=== PATIENT | male | born 1965 | race Caucasian/White ===

== ENCOUNTER 2022-01-10 20:34 | Observation (INO) ==
[2022-01-10] MEDS ORDERED: Iopamidol - 370 500 ML MLS IVP ONE (20:53)
[2022-01-10] MEDS ORDERED: Ketorolac 30 MG/ML VIAL IVP ONE (20:54)
[2022-01-10 21:16] LABS: Basophils % 0.2 %; Eosinophils # 0.1 K/mcL (0.0-0.6); Eosinophils % 0.6 %; Hemoglobin 14.5 g/dL (12.9-16.9); Immature Granulocytes % 0.3 % (0-4); Lymphocytes # 2.2 K/mcL (0.6-4.6); Lymphocytes % 20.2 %; Mean Corpuscular Hemoglobin 28.9 pg (28.0-33.3); Mean Corpuscular Volume 87.6 fL (83.0-100.0); Mean Platelet Volume 9.7 fL (9.4-12.4); Monocytes # 0.7 K/mcL (0.0-1.3); Monocytes % 6.6 %; Neutrophils # 7.7 K/mcL (1.6-8.9); Platelet Count 341 K/mcL (140-400); Red Blood Count 5.02 M/mcL (4.19-5.50); Red Cell Distribution Width 13.8 % (11.5-14.5); Segmented Neutrophils % 72.1 %; White Blood Count 10.7 K/mcL (4.3-11.1)
[2022-01-10 21:37] LABS: Alanine Aminotransferase 36 Units/L (7-52); Albumin 4.1 g/dL (3.5-5.7); Albumin/Globulin Ratio 0.9 (1.1-2.2); Alkaline Phosphatase 64 Units/L (34-104); Aspartate Amino Transferase 27 Units/L (13-39); BUN/Creatinine Ratio 18 (6-26); Bilirubin,Total 0.4 mg/dL (0.3-1.0); Blood Urea Nitrogen 16 mg/dL (6-20); Carbon Dioxide 24 mEq/L (23-29); Chloride 103 mEq/L (98-107); Globulin 4.4 g/dL (2.4-3.5); Glucose 105 mg/dL (70-105); Lipase 30 Units/L (11-82); Osmolality,Calculated 286 (280-300); Potassium 3.7 mEq/L (3.5-5.1); Sodium 137 mEq/L (136-145); Total Protein 8.5 g/dL (6.4-8.9); eGFR For African Americans > 60 (> 60); eGFR For Non-African Americans > 60 (> 60)
[2022-01-10 23:18] LABS: Bacteria,Urine Few per hpf (None-Few); Bilirubin,Urine Negative (Negative); Blood,Urine Negative (Negative); Clarity,Urine Turbid (Clear); Color,Urine Yellow (Yellow); Glucose,Urine (UA) Normal (Normal); Ketones,Urine Trace mg/dL (Negative); Leukocyte Esterase,Urine Negative (Negative); Mucus,Urine Few per lpf (None-Few); Nitrite,Urine Negative (Negative); Protein,Urine 30 mg/dL (Neg-Trace); RBC,Urine 0-3 per hpf (0-3); Specific Gravity,Urine 1.028 (1.010-1.025); Squamous Epithelial Cell,Urine Few per hpf (None-Few)
[2022-01-10] MEDS ORDERED: Morphine Sulfate 2 MG/ML SYRINGE IVP ONE (23:51)
[2022-01-11] MEDS ORDERED: Ondansetron 4 MG/2 ML VIAL IVP ONE (00:03)
[2022-01-11 00:17] LABS: Amphetamine Screen,Urine Positive ng/mL (Cutoff=1000); Barbiturate Screen,Urine Negative ng/mL (Cutoff=200); Benzodiazepines Screen,Urine Negative ng/mL (Cutoff=200); Cannabinoid Screen,Urine Negative ng/mL (Cutoff = 50); Cocaine Screen,Urine Positive ng/mL (Cutoff= 300); Opiate Screen,Urine Negative ng/mL (Cutoff=300); Phencyclidine Screen,Urine Negative ng/mL (Cutoff=25)
[2022-01-11] MEDS ORDERED: 0.9 % Sodium Chloride 1,000 ML IVC SCH (01:00)
[2022-01-11] MEDS ORDERED: Naloxone 0.4 MG/ML INJ IVP PRN (01:02)
[2022-01-11] MEDS ORDERED: Ondansetron 4 MG/2 ML VIAL IVP PRN (01:02)
[2022-01-11] MEDS ORDERED: cefTRIAXone 1,000 MG in 0.9 % Sodium Chloride 10 ML IVP ONE (01:09)
[2022-01-11 01:19] LABS: Influenza A PCR Negative (Negative); Influenza B PCR Negative (Negative); Resp. Syncytial Virus PCR Negative (Negative); SARS-CoV-2 by PCR (In House) Negative (Negative)
[2022-01-11] MEDS: Acetaminophen IV 1,000 MG/100 ML BAG IVPB SCH ×2 (02:41→07:55)
[2022-01-11 03:29] LABS: Hematocrit 46.2 % (37.5-50.1); Mean Corpuscular HGB Conc 32.5 g/dL (31.6-35.5); Mean Corpuscular Volume 89.4 fL (83.0-100.0); Mean Platelet Volume 10.2 fL (9.4-12.4); Platelet Count 328 K/mcL (140-400); Red Blood Count 5.17 M/mcL (4.19-5.50)
[2022-01-11 03:30] LABS: INR 1.1; Prothrombin Time 12.5 Seconds (9.4-12.1)
[2022-01-11 03:33] LABS: Activated Partial Thrombo Time 33.6 Seconds (26.0-36.0)
[2022-01-11 03:41] LABS: Estimated Average Glucose 126 mg/dl
[2022-01-11 03:57] LABS: BUN/Creatinine Ratio 17 (6-26); Blood Urea Nitrogen 15 mg/dL (6-20); Carbon Dioxide 23 mEq/L (23-29); Chloride 102 mEq/L (98-107); Cholesterol 163 mg/dL (< 200); Glucose 91 mg/dL (70-105); HDL Cholesterol 55 mg/dL (40-59); LDL Cholesterol,Calculated 93 mg/dL (< 100); Osmolality,Calculated 280 (280-300); Potassium 3.8 mEq/L (3.5-5.1); Sodium 135 mEq/L (136-145); Triglycerides 74 mg/dL (< 150); eGFR For African Americans > 60 (> 60); eGFR For Non-African Americans > 60 (> 60)
[2022-01-11 03:58] LABS: Troponin I 0.06 ng/mL (< 0.04)
[2022-01-11 11:01] VITALS: BP 144/93; PULSE 78; TEMP 97.6; O2SAT 98
[2022-01-11] MEDS ORDERED: Acetaminophen IV 1,000 MG/100 ML BAG IVPB SCH (14:00)
== END 2022-01-11 12:45 | disposition left against medical advice (07) ==
LOC: EMEROOARM 20:34 → 3ANU 20:34 → SUATTDRO 23:56 → 3ANU 01-11 00:13
PROVIDERS: ADMIT Internal Medicine; ATTEND Internal Medicine